=== PATIENT | male | born 1970 | race Caucasian/White ===

== ENCOUNTER 2018-10-22 16:14 | Emergency (ER) | payer SELFPAY ==
[~2018-10-22] VITALS: Ht 180.3 cm; Wt 195.0 kg
--- NOTE | 2018-10-22 16:33 | ER Report ---
History and Physical Time Seen By MD: 16:32 Hx. of Stated Complaint: Pt. started having abdominal pain last night. Rates pain 5/10. Large umbilical hernia, where pain is located. HPI/ROS CHIEF COMPLAINT: abd pain HISTORY OF PRESENT ILLNESS: PT from [place] trying to get to [place] but started with abdominal pain in his ventral hernia. Pain started last night and he was unable to get painfree. Pt came to ed today due to the pain. PT states he always has the hernia but not always painful. PT denies any abdominal pain. PT statse he has been having bowel movements. No fevers. no vomiting REVIEW OF SYSTEMS: Constitutional: No fever, no chills. Eyes: No discharge. ENT: No sore throat. Cardiovascular: No chest pain, no palpitations. Respiratory: No cough, no shortness of breath. Gastrointestinal: + abdominal pain, no vomiting. Genitourinary: No hematuria. Musculoskeletal: No back pain. Skin: No rashes. Neurological: No headache. Allergies: Coded Allergies: adhesive tape (Verified Allergy, Intermediate, rash, 10/22/18) Home Meds Reported Medications Furosemide (LASIX) 80 Mg Tablet, 1 TAB PO DAILY, TAB 10/22/18 Meclizine Hcl (MECLIZINE HCL) 25 Mg Tablet, 50 MG PO DAILY 10/22/18 Past Medical/Surgical History Pmhx: legally blind, meniers ds Pshx: lazy eye surgery Reviewed Nurses Notes: Yes Old Medical Records Reviewed: Yes Hx Smoking: No Hx Alcohol Use: No Constitutional Vital Sign - Last 24 Hours 10/22/18 10/22/18 10/22/18 10/22/18 16:30 16:34 16:39 16:44 Pulse 83 80 86 B/P (MAP) 132/99 (110) Pulse Ox 94 93 94 10/22/18 10/22/18 18:04 18:09 Pulse 73 B/P (MAP) 123/82 (96) Pulse Ox 94 Physical Exam General Appearance: The patient is alert, has no immediate need for airway protection and no signs of toxicity. Eyes: Pupils equal and round no pallor or injection, EOMI ENT: no pharyngeal erythema or exudates, Mucous membranes are moist, TM are nl b/l Respiratory: There are no retractions, lungs are clear to auscultation. Cardiovascular: Regular rate and rhythm. pulses are equal and symmetrical Gastrointestinal: Abdomen is soft with tender ventral hernia, + enlarged habitus, bowel sounds normal, no guarding, no rigidity or rebound Neurological: Cranial nerves II-XII grossly intact, no sensory or motor loss Skin: Warm and dry, no rashes. Musculoskeletal: Neck is supple non tender, no vertebral tenderness Extremities are non tender, nonswollen and have full range of motion. DIFFERENTIAL DIAGNOSIS: After history and physical exam differential diagnosis was considered for ventral hernia, incarcerated hernia Medical Decision Making Data Points Result Diagram: 10/22/18 1651 10/22/18 1651 Laboratory Hematology Test 10/22/18 16:30 10/22/18 16:51 Urine Color Yellow Urine Clarity Clear Urine pH 7.0 pH (4.8-9.5) Urine Specific [place] 1.015 Urine Protein Trace mg/dL (NEGATIVE) Urine Glucose (UA) Negative mg/dL (NEGATIVE) Urine Ketones Negative mg/dL (NEGATIVE) Urine Blood Negative (NEGATIVE) Urine Nitrite Negative (NEGATIVE) Urine Bilirubin Negative (NEGATIVE) Urine Urobilinogen 0.2 mg/dL (0.2-1.9) Urine Leukocyte Esterase Trace (NEGATIVE) Urine RBC 3 /HPF (0-2/HPF) Urine WBC 8 /HPF (0-5/HPF) Urine Squamous Epithelial Cells Many /LPF (</=FEW) Urine Bacteria Negative /HPF (NONE-FEW) Urine Mucus Few /HPF (NONE-FEW) Red Blood Count 4.33 M/uL (4.00-5.60) Mean Corpuscular Volume 83.7 fL (80.0-96.0) Mean Corpuscular Hemoglobin 27.5 pg (26.0-33.0) Mean Corpuscular Hemoglobin Concent 32.9 g/dL (32.0-36.0) Red Cell Distribution Width 16.3 % (11.5-14.5) Mean Platelet Volume 6.7 fL (7.2-11.1) Neutrophils (%) (Auto) 75.1 % (39.4-72.5) Lymphocytes (%) (Auto) 15.7 % (17.6-49.6) Monocytes (%) (Auto) 7.1 % (4.1-12.4) Eosinophils (%) (Auto) 1.7 % (0.4-6.7) Basophils (%) (Auto) 0.4 % (0.3-1.4) Nucleated RBC Relative Count (auto) 0.0 /100WBC Neutrophils # (Auto) 5.8 K/uL (2.0-7.4) Lymphocytes # (Auto) 1.2 K/uL (1.3-3.6) Monocytes # (Auto) 0.5 K/uL (0.3-1.0) Eosinophils # (Auto) 0.1 K/uL (0.0-0.5) Basophils # (Auto) 0.0 K/uL (0.0-0.1) Nucleated RBC Absolute Count (auto) 0.00 K/uL Prothrombin Time 12.1 seconds (12.0-14.4) Prothromb Time International Ratio 0.90 Activated Partial Thromboplast Time 29 seconds (23-35) Sodium Level 141 mmol/L (137-145) Potassium Level 4.2 mmol/L (3.5-5.0) Chloride Level 104 mmol/L (98-107) Carbon Dioxide Level 29 mmol/L (22-30) Blood Urea Nitrogen 15 mg/dl (9-21) Creatinine 1.00 mg/dl (0.66-1.25) Glomerular Filtration Rate Calc > 60.0 Random Glucose 94 mg/dl (75-110) Lactate 1.0 mmol/L (0.7-2.1) Calcium Level 8.6 mg/dl (8.4-10.2) Total Bilirubin 0.2 mg/dl (0.2-1.3) Aspartate Amino Transf (AST/SGOT) 17 U/L (0-35) Alanine Aminotransferase (ALT/SGPT) 30 U/L (0-56) Alkaline Phosphatase 74 U/L (0-126) Total Protein 7.2 g/dl (6.3-8.2) Albumin 3.6 g/dl (3.5-5.0) Lipase 85 U/L (23-300) Chemistry Test 10/22/18 16:30 10/22/18 16:51 Urine Color Yellow Urine Clarity Clear Urine pH 7.0 pH (4.8-9.5) Urine Specific [place] 1.015 Urine Protein Trace mg/dL (NEGATIVE) Urine Glucose (UA) Negative mg/dL (NEGATIVE) Urine Ketones Negative mg/dL (NEGATIVE) Urine Blood Negative (NEGATIVE) Urine Nitrite Negative (NEGATIVE) Urine Bilirubin Negative (NEGATIVE) Urine Urobilinogen 0.2 mg/dL (0.2-1.9) Urine Leukocyte Esterase Trace (NEGATIVE) Urine RBC 3 /HPF (0-2/HPF) Urine WBC 8 /HPF (0-5/HPF) Urine Squamous Epithelial Cells Many /LPF (</=FEW) Urine Bacteria Negative /HPF (NONE-FEW) Urine Mucus Few /HPF (NONE-FEW) White Blood Count 7.7 k/uL (4.5-11.0) Red Blood Count 4.33 M/uL (4.00-5.60) Hemoglobin 11.9 g/dL (14.0-18.0) Hematocrit 36.2 % (42.0-52.0) Mean Corpuscular Volume 83.7 fL (80.0-96.0) Mean Corpuscular Hemoglobin 27.5 pg (26.0-33.0) Mean Corpuscular Hemoglobin Concent 32.9 g/dL (32.0-36.0) Red Cell Distribution Width 16.3 % (11.5-14.5) Platelet Count 350 K/uL (150-450) Mean Platelet Volume 6.7 fL (7.2-11.1) Neutrophils (%) (Auto) 75.1 % (39.4-72.5) Lymphocytes (%) (Auto) 15.7 % (17.6-49.6) Monocytes (%) (Auto) 7.1 % (4.1-12.4) Eosinophils (%) (Auto) 1.7 % (0.4-6.7) Basophils (%) (Auto) 0.4 % (0.3-1.4) Nucleated RBC Relative Count (auto) 0.0 /100WBC Neutrophils # (Auto) 5.8 K/uL (2.0-7.4) Lymphocytes # (Auto) 1.2 K/uL (1.3-3.6) Monocytes # (Auto) 0.5 K/uL (0.3-1.0) Eosinophils # (Auto) 0.1 K/uL (0.0-0.5) Basophils # (Auto) 0.0 K/uL (0.0-0.1) Nucleated RBC Absolute Count (auto) 0.00 K/uL Prothrombin Time 12.1 seconds (12.0-14.4) Prothromb Time International Ratio 0.90 Activated Partial Thromboplast Time 29 seconds (23-35) Glomerular Filtration Rate Calc > 60.0 Lactate 1.0 mmol/L (0.7-2.1) Calcium Level 8.6 mg/dl (8.4-10.2) Total Bilirubin 0.2 mg/dl (0.2-1.3) Aspartate Amino Transf (AST/SGOT) 17 U/L (0-35) Alanine Aminotransferase (ALT/SGPT) 30 U/L (0-56) Alkaline Phosphatase 74 U/L (0-126) Total Protein 7.2 g/dl (6.3-8.2) Albumin 3.6 g/dl (3.5-5.0) Lipase 85 U/L (23-300) Coagulation Test 10/22/18 16:51 Prothrombin Time 12.1 seconds Prothromb Time International Ratio 0.90 Activated Partial Thromboplast Time 29 seconds Urinalysis Test 10/22/18 16:30 Urine Color Yellow Urine Clarity Clear Urine pH 7.0 pH (4.8-9.5) Urine Specific [place] 1.015 Urine Protein Trace mg/dL (NEGATIVE) Urine Glucose (UA) Negative mg/dL (NEGATIVE) Urine Ketones Negative mg/dL (NEGATIVE) Urine Blood Negative (NEGATIVE) Urine Nitrite Negative (NEGATIVE) Urine Bilirubin Negative (NEGATIVE) Urine Urobilinogen 0.2 mg/dL (0.2-1.9) Urine Leukocyte Esterase Trace (NEGATIVE) Urine RBC 3 /HPF (0-2/HPF) Urine WBC 8 /HPF (0-5/HPF) Urine Squamous Epithelial Cells Many /LPF (</=FEW) Urine Bacteria Negative /HPF (NONE-FEW) Urine Mucus Few /HPF (NONE-FEW) ED Course/Re-evaluation ED Course 10/22/2018 5:13:[address] Robertson and let them know that I was unable to fully reduce this hernia. States he will be in to see patient. Will start labs and CT. 10/22/2018 7:13:51 pm PT seen by surgery. Surgery was not recommended at this time. Decision to Disposition Date: Oct 22, 2018 Decision to Disposition Time: 19:14 Depart Departure Latest Vital Signs Vital Signs Date Time Temp Pulse Resp B/P (MAP) Pulse Ox O2 Delivery O2 Flow Rate FiO2 10/22/18 18:09 73 94 10/22/18 18:04 123/82 (96) Impression: Primary Impression: Ventral hernia Condition: Improved Disposition: HOME OR SELF-CARE New Scripts Hydrocodone Bit/Acetaminophen (HYDROCODON-ACETAMINOPHEN 5-325) 1 Each Tablet 1 EACH PO Q4-6H PRN for PAIN, #15 TAB Prov: LES BETANCOURT DO 10/22/18 Departure Forms: ER Transition Record, Medications Reconciliation, Patient Portal Information Patient Instructions: Ventral Hernia (ED) Additional Instructions: It was recommended that you follow up with surgery when you get to your final destination. Loratab (narcotic, hydrocodone with tylenol) one every 6 hours as needed for pain. If you start fever, vomiting or are unable to pass gas or have a bowel movement then return to the nearest emergency department. Problem Qualifiers Primary Impression: Ventral hernia Obstruction and gangrene presence: without obstruction or gangrene Qualified Codes: K43.9 - Ventral hernia without obstruction or gangrene LES BETANCOURT DO Oct 22, 2018 16:33
[2018-10-22] MEDS ORDERED: MECL25TA9 PO (16:36)
[2018-10-22] MEDS ORDERED: FURO80TA10 PO (16:36)
[2018-10-22] MEDS ORDERED: fentaNYL CITR 100 MCG/2 ML AMP IVP ONE (16:45)
[2018-10-22 17:03] LABS: PLATELET COUNT, AUTOMATED 350 K/uL (150-450)
[2018-10-22 17:31] LABS: INR 0.9
[2018-10-22] MEDS ORDERED: IOPAMIDOL 76% 100 ML INFUS BTL 100 ML ONE (17:36)
--- NOTE | 2018-10-22 18:23 | RADIOLOGY IMAGING REPORT ---
FACILITY: [facility] PATIENT NAME: Eugene Dunaway : 1970 MR: [id number] V: [id number] EXAM DATE: ORDERING PHYSICIAN: LES BETANCOURT TECHNOLOGIST: Location: [facility] Patient: Eugene Dunaway : 1970 Visit/Account:[id number] Date of Sevice: 10/22/2018 EXAMINATION: CT abdomen and pelvis with contrast COMPARISON: None. HISTORY: Umbilical pain. PROCEDURE: Multiplanar contrast enhanced CT of the abdomen and pelvis with 75 mL intravenous Isovue 3 70. One of the following dose optimization techniques was utilized in the performance of this exam: A utomated exposure control; adjustment of the mA and/or kV according to the patient's size; or use of an iterative reconstruction technique. Specific details can be referenced in the facility's radiolo gy CT exam operational policy. FINDINGS: Visualized thorax: No acute findings. Liver: Negative. Gallbladder and biliary system: Negative Spleen: Negative. Pancreas: Negative. Adrenal glands: Negative. Kidneys and bladder: Negative. Vessels: Negative. Bowel and mesentery: A segment of mid transverse colon extends into a large umbilical hernia; hernia neck measures 7.9 x 6.8 cm. The herniated colon and fat is otherwise unremarkable with no evidence of associated inflammation or obstruction. Stomach is within normal limits. No small bowel obstruction or inflammation. Appendix is unremarkable . Small amount of stool in the colon. Pelvic organs: Negative. Lymph nodes: No adenopathy. Free air/free fluid: None. Musculoskeletal: Umbilical hernia as described above. Probable tiny fat-containing inguinal hernias. Mild degenerative change in the visualized spine. IMPRESSION: Large umbilical hernia containing transverse colon. There is no evidence of associated inflammation o r obstruction but surgical consultation is recommended if there is any clinical concern for an incarc erated/regulated hernia. Report Dictated By: Paolo Dominguez MD at 10/22/2018 6:10 PM Report E-Signed By: Paolo Dominguez MD at 10/22/2018 6:19 PM WSN:[id number]
[2018-10-22 18:30] VITALS: BP 125/81
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
[2018-10-22] MEDS ORDERED: LOR5/325 PO (19:18)
== END 2018-10-22 19:49 | disposition home or self-care (01) ==
LOC: ER 16:35
DX: K43.9 Ventral hernia without obstruction or gangrene (principal)
CPT/HCPCS: 74177; 81001; 83605; 83690; 85025; 85610; 85730; 96374; 99284; J3010; Q9967; 82040; 82247; 82310; 82374; 82435; 82565; 82947; 84075; 84132; 84155; 84295; 84450; 84460; 84520

== ENCOUNTER → 2018-10-22 | Outpatient (CLI) | payer SELFPAY ==
[~2018-10-22] MED LIST: FURO80TA10 PO; LOR5/325 PO; MECL25TA9 PO
== END ==
LOC: AMB 16:02
PROVIDERS: ATTEND Nurse Practitioner
DX: R10.84 Generalized abdominal pain (principal)
CPT/HCPCS: A0425; A0429